=== PATIENT | male | born 1985 | race Caucasian/White ===

== ENCOUNTER 2017-04-09 03:27 | Emergency (ER) | payer OTHER | END 2017-04-09 04:20 | disposition home or self-care (01) | LOC: D.ER 03:27 | DX: L02.512 Cutaneous abscess of left hand (principal); F17.200 Nicotine dependence, unspecified, uncomplicated ==

== ENCOUNTER 2017-07-28 18:13 | Emergency (ER) | payer OTHER | END 2017-07-28 19:30 | disposition home or self-care (01) | LOC: D.ER 18:13 | DX: M54.5 Low back pain (principal); M62.838 Other muscle spasm; M54.30 Sciatica, unspecified side ==